=== PATIENT | female | born 1985 | race Caucasian/White ===

== ENCOUNTER 2017-05-02 12:36 | Emergency (ER) | payer OTHER ==
[~2017-05-02 12:36] MED LIST: IRON1 TAB; MACROBID100 M1; NO MEDICATIONS; PRENATAL1 TA1
[2017-05-02 13:24] LABS: URINE SOURCE CLEAN CATCH
[2017-05-02 13:28] LABS: URINE APPEARANCE CLEAR; URINE BILIRUBIN NEG (NEG); URINE BLOOD NEG (NEG); URINE COLOR YELLOW; URINE GLUCOSE NEG (NEG); URINE KETONE NEG (NEG); URINE LEUKOCYTE ESTERASE NEG (NEG); URINE NITRATE NEG (NEG); URINE PH 5.5 (5-8); URINE PROTEIN TRACE (NEG); URINE SPECIFIC GRAVITY 1.036 (1.003-1.035); URINE UROBILINOGEN 0.2 MG/DL (NEG)
[2017-05-02 13:28] LABS: BASOPHIL% 1.2 % (0-2.5); EOSINOPHIL# 0.2 X10e3 (0-0.7); EOSINOPHIL% 6.7 % (0.0-7.0); HEMATOCRIT 38.1 % (35.0-45.0); HEMOGLOBIN 12.6 gm/dL (12.0-16.0); LYMPHOCYTE# 1.2 X10e3 (1.0-3.5); LYMPHOCYTE% 34.8 % (17.0-45.0); MEAN CELL VOLUME 94.3 FL (83-96); MEAN CORPUSCULAR HEMOGLOBIN 31.1 PG (28-34); MEAN CORPUSCULAR HGB CONC 32.9 g/dL (30-36); MEAN PLATELET VOLUME 7.4 FL (6.5-11.5); MONOCYTE# 0.4 X10e3 (0-1.0); MONOCYTE% 11.1 % (3.0-12.0); NEUTROPHIL# 1.6 X10e3 (1.5-7.1); NEUTROPHIL% 46.2 % (40-75); PLATELET COUNT 245 X10e3 (140-420); RED BLOOD COUNT 4.04 X10e (3.90-5.30); RED CELL DISTRIBUTION WIDTH 13.2 % (11.0-15.5); WHITE BLOOD COUNT 3.5 X10e3 (4.0-10.5)
[2017-05-02 13:31] LABS: DIFF IND NO
[2017-05-02 13:33] LABS: CULTURE INDICATED? NO
[2017-05-02 13:55] LABS: ALBUMIN SERUM 3.7 g/dL (3.5-5.0); BILIRUBIN, DIRECT 0.1 mg/dL (0.0-0.2); BILIRUBIN,INDIRECT 0.6 mg/dL (0.0-0.9); BILIRUBIN,TOTAL 0.7 mg/dL (0.2-2.0); BUN/CREATININE RATIO 14.44; CALCIUM SERUM 8.4 mg/dL (8.4-10.2); CREATININE SERUM 0.9 mg/dL (0.6-1.4); GLOM FILT RATE Estimated 85.3 mL/min (>60); POTASSIUM 3.4 mmol/L (3.5-5.1)
== END 2017-05-02 14:42 | disposition home or self-care (01) ==
LOC: CED 12:36
PROVIDERS: Nurse Practitioner
DX: A08.4 Viral intestinal infection, unspecified (principal); F32.9 Major depressive disorder, single episode, unspecified
CPT/HCPCS: 36415; 80048; 80076; 81003; 82150; 83690; 84703; 85025; 99284

== ENCOUNTER 2017-05-18 20:52 | Inpatient (IN) | payer OTHER ==
[~2017-05-18] VITALS: Ht 175.3 cm; Wt 88.5 kg
--- NOTE | ~2017-05-18 | PN ---
Unit #: [id number] #: [id number] Patient: JOVAN RODRIGUEZ [id number] [facility] [address] [place] [address] [id number] I MR#: [id number] NAME: JOVAN RODRIGUEZ. ROOM: P121 Age: 32 Sex: F Admission Date: 05/18/2017 : 1985 Attending Physician: Mike Ernandez M.D. Admitting Physician: Mike Ernandez M.D. Primary Care Physician: Redd Hoyt PROGRESS NOTES DATE 05/20/2017 DISCUSSION The patient is abed resting comfortably. Staff reports no management issues. We have learned that the patient is not , and trazodone has been reinitiated. The patient continues to minimize her substance abuse issues. Dictated by... Mike Ernandez M.D. CB/yu TD: 05/20/2017 13:13 JOB #: [id number] GIO PROGRESS NOTES Page 1 of 1 X Mike Ernandez MD X PROGRESS NOTE
--- NOTE | ~2017-05-18 | PA ---
Unit #: [id number] #: [id number] Patient: JOVAN RODRIGUEZ [id number] [facility] [address] [place] [address] [id number] MR#: [id number] NAME: JOVAN RODRIGUEZ. ROOM: [facility] Age: 32 Sex: F Admission Date: 05/18/2017 : 1985 Date of Assessment: 05/19/2017 Attending Physician: Mike Ernandez M.D. Admitting Physician: Mike Ernandez M.D. Primary Care Physician: Ignacio Barreto M.D. PSYCHIATRIC ASSESSMENT IDENTIFYING INFORMATION The patient is a 31-year-old white female admitted voicing positive suicidal ideation. INFORMANT(S) Patient and chart. RELIABILITY Fair. CHIEF COMPLAINT None given. HISTORY OF PRESENT ILLNESS The patient is a 31-year-old white female with a history of cocaine and alcohol abuse as well as depression. She was last hospitalized at this facility in August 2016. The patient reports that she yesterday learned that CPS worker would seek permanent removal of her 3 children from her home and this caused her to become suicidal with plan to crash her automobile. The patient reports was previously prescribed Celexa and Geodon but is currently on no prescribed psychotropic medications. She had reported to staff on admission that she is and due to give in January 2018. For a more complete history of present illness, please refer to previous dictated notes. PAST PSYCHIATRIC HISTORY Reviewed, no changes. FAMILY HISTORY/SOCIAL HISTORY Reviewed, no changes. MEDICAL HISTORY Reviewed, no changes. MEDICATION HISTORY None on admission. ALLERGIES None. MENTAL STATUS EXAM At this time, reveals the patient to be an obese white female appearing her stated age. She is in no apparent physical distress at the time of Unit #: [id number] #: [id number] Patient: JOVAN RODRIGUEZ examination. She is awake, alert, oriented in all spheres. Her mood is mildly dysphoric. Her affect constricted. Speech is generally relevant and coherent. There are no gross deficits in memory or cognition noted. Intelligence is judged to be in the average range based on fund of knowledge. The patient is cooperative throughout the interview. She is currently endorsing positive suicidal ideation. She denies homicidal ideation. She denies any psychotic symptoms. Her judgement and insight appear to be reasonably intact. ASSETS AND LIABILITIES Patient's assets to be assessed. Liabilities, lack of resources. ADMITTING DIAGNOSES 1. Dysthymic disorder. 2. Cocaine use disorder. 3. Alcohol use disorder. 4. Obesity. 5. Rule out . PSYCHIATRIC PLAN/TREATMENT GOALS The patient remains hospitalized for safety and stabilization. Because she had stated that she is , we will hold all medications and seek a stat beta HCG. Considerations regarding treatment options will be undertaken once we are certain of the patient's status. Suicide precautions remain in place. ESTIMATED LENGTH OF STAY Five to seven days. Dictated by... Mike Ernandez M.D. MORENITA/dayan TD: 05/19/2017 15:25 JOB #: [id number] PSYCHIATRIC ASSESSMENT Page 1 of 1 X Mike Ernandez MD X PSYCHIATRIC ASSESSMENT
--- NOTE | ~2017-05-18 | DS ---
Unit #: [id number] #: [id number] Patient: JOVAN RODRIGUEZ [id number] [facility] [address] [place] [address] [id number] MR#: [id number] NAME: JOVAN RODRIGUEZ. ROOM: [facility] Age: 32 Sex: F Admission Date: 05/18/2017 : 1985 Discharge Date: 05/21/2017 Attending Physician: Mike Ernandez M.D. Primary Care Physician: Ignacio Barreto M.D. DISCHARGE SUMMARY REASON FOR ADMISSION The patient is a 31-year-old white female, admitted voicing positive suicidal ideation. HOSPITAL COURSE The patient was admitted to the [address] [place] [address] unit and placed on suicide precautions. She claimed to be at the time of admission, so home medications were held. It was however learned that the patient was not in fact . She did not however wish to begin taking any further medications apart from trazodone for sleep. On 05/21/2017, the patient was bright euthymic and denied suicidal ideation. She requested discharge and it was so ordered. FINAL DIAGNOSES Dysthymic disorder; cocaine use disorder by history; alcohol use disorder; obesity. DISPOSITION ON DISCHARGE The patient is discharged on the following medications: Trazodone 50 mg at bedtime p.r.n. insomnia. DISCHARGE INSTRUCTIONS No dietary or physical restrictions were placed upon the patient at the time of discharge. FOLLOWUP Followup will take place through the auspices of community mental health resources. PROGNOSIS The patient's prognosis is considered fair. Dictated by... Mike Ernandez M.D. CB/vinay TD: 05/21/2017 22:53 JOB #: [id number] Unit #: [id number] #: [id number] Patient: JOVAN RODRIGUEZ DISCHARGE SUMMARY Page 1 of 1 X Mike Ernandez MD X DISCHARGE SUMMARY
--- NOTE | ~2017-05-18 | HP ---
Unit #: [id number] #: [id number] Patient: JOVAN RODRIGUEZ [id number] [place] [address] [id number] I MR#: [id number] NAME: JOVAN RODRIGUEZ. ROOM: P121 Age: 32 Sex: F Admission Date: 05/18/2017 : 1985 Attending Physician: Mike Ernandez M.D. Admitting Physician: Mike Ernandez M.D. Primary Care Physician: Ignacio Barreto M.D. HISTORY AND PHYSICAL HISTORY OF PRESENT ILLNESS Jovan is a 32 year old admitted to [address] [place] [address] with depression and verbalizing wanting to hurt herself. PAST MEDICAL HISTORY Patient reports she is 2 months . PAST SURGICAL HISTORY Nothing reported. ALLERGIES No known drug allergies. SOCIAL HISTORY She does not smoke. Has a history of illicit drug use but denies anything currently. FAMILY HISTORY Medically noncontributory. REVIEW OF SYSTEMS CONSTITUTIONAL: No fever or chills. HEENT: Denies any sore throat, ear pain or runny nose. CARDIOVASCULAR: Denies chest pain, irregular heart rhythm or palpitations. CHEST: Denies shortness of breath or cough. No hemoptysis. GASTROINTESTINAL: Denies nausea, vomiting, diarrhea or chronic constipation. ENDOCRINE: Denies history of increased thirst or urination. No recent significant weight loss or gain. GENITOURINARY: Denies dysuria, frequency, or hematuria. SKIN: Denies any rashes. HEMATOLOGIC: Denies history of increased bleeding or bruising. MUSCULOSKELETAL: Denies any hot, swollen joints. No generalized muscle pain. NEUROLOGIC: Denies problems with vision or speech. No frequent, severe headaches. No numbness, tingling or weakness in any extremities. Denies loss of bladder or bowel control. CURRENT MEDICATIONS Preparation H topically p.r.n. PHYSICAL EXAMINATION GENERAL: Alert, well-nourished, in no apparent distress. Unit #: [id number] #: [id number] Patient: JOVAN RODRIGUEZ VITAL SIGNS: Blood pressure 110/50, heart rate 72, respirations 16, temperature 98.6. WEIGHT: 195. HEIGHT: 5 feet 9 inches. SKIN: Warm and dry without rash or lesion. HEENT: Normocephalic. TMs not viewed. Oral and nasal passages clear. Conjunctivae clear. PERRLA. EOMs intact. NECK: Supple without lymphadenopathy or thyromegaly. HEART: Regular rate and rhythm without murmur. LUNGS: Clear. ABDOMEN: Soft, nontender. : Not done. EXTREMITIES: No evidence of cyanosis, clubbing or edema. Moves all without focal deficit. NEUROLOGICAL: Grossly within normal limits. Cranial Nerves: II: Visual peña are intact. III, IV AND : Extraocular movements are intact. Pupils are equal, round and reactive to light. V: Facial sensation is grossly normal. VII: Facial movements and expression are normal. VIII: Auditory acuity grossly intact. IX, X: Uvula is midline. Phonation is normal. XI: Patient shrugs shoulders and turns head normally. XII: Tongue protrudes in the midline. Sensory and Motor Function: Sensory and motor sensation is grossly normal. Motor: moves all extremities well. Coordination: Gait is normal. Deep Tendon Reflexes: Intact. IMPRESSION 1. Psychiatric admission. 2. Patient reports she is 2 months . Beta HCG is negative. RECOMMENDATIONS PSYCHIATRIC: Per psychiatrist. MEDICAL: See no contraindication to participate in facility's activities. MEDICAL PROGNOSIS Good. MEDICAL CONDITION Stable. Dictated by... Lisa Gottlieb PSudhakarASudhakar-C. for Redd Abbott/dayan TD: 05/19/2017 23:02 JOB #: [id number] Unit #: [id number] #: [id number] Patient: JOVAN RODRIGUEZ HISTORY AND PHYSICAL Page 1 of 1 X Lisa Gottlieb HISTORY AND PHYSICAL
[2017-05-19 10:35] LABS: BASOPHIL# 0.1 X10e3 (0-0.3); BASOPHIL% 1.2 % (0-2.5); EOSINOPHIL# 0.2 X10e3 (0-0.7); EOSINOPHIL% 3.7 % (0.0-7.0); HEMATOCRIT 39.1 % (35.0-45.0); HEMOGLOBIN 12.9 gm/dL (12.0-16.0); LYMPHOCYTE# 2.8 X10e3 (1.0-3.5); LYMPHOCYTE% 41.8 % (17.0-45.0); MEAN CELL VOLUME 95.9 FL (83-96); MEAN CORPUSCULAR HEMOGLOBIN 31.6 PG (28-34); MEAN CORPUSCULAR HGB CONC 32.9 g/dL (30-36); MEAN PLATELET VOLUME 8.3 FL (6.5-11.5); MONOCYTE# 0.5 X10e3 (0-1.0); NEUTROPHIL# 3.1 X10e3 (1.5-7.1); NEUTROPHIL% 46.3 % (40-75); PLATELET COUNT 243 X10e3 (140-420); RED BLOOD COUNT 4.08 X10e (3.90-5.30); RED CELL DISTRIBUTION WIDTH 13.6 % (11.0-15.5); WHITE BLOOD COUNT 6.7 X10e3 (4.0-10.5)
[2017-05-19 10:40] LABS: DIFF IND NO
[2017-05-19 10:44] LABS: ALBUMIN SERUM 3.5 g/dL (3.5-5.0); BILIRUBIN,TOTAL 0.5 mg/dL (0.2-2.0); CALCIUM SERUM 9.1 mg/dL (8.4-10.2); POTASSIUM 4.2 mmol/L (3.5-5.1); PROTEIN TOTAL SERUM 6.7 g/dL (6.0-8.3)
[2017-05-19 10:51] LABS: THYROID STIMULATING HORMONE 2.13 uIU/ml (0.34-5.60)
[2017-05-19 10:58] LABS: FREE THYROXIN (T4) 0.86 ng/dL (0.58-1.64)
== END 2017-05-21 12:50 | disposition home or self-care (01) | DRG 881 ==
LOC: P1S 21:50
PROVIDERS: Specialist
DX: F34.1 Dysthymic disorder (principal); R45.851 Suicidal ideations; F12.10 Cannabis abuse, uncomplicated; F10.10 Alcohol abuse, uncomplicated; E66.9 Obesity, unspecified; Z68.28 Body mass index [BMI] 28.0-28.9, adult
CPT/HCPCS: 80053; 84439; 84443; 84703; 85025

== ENCOUNTER 2017-07-04 11:12 | Emergency (ER) | payer OTHER ==
[~2017-07-04] VITALS: Ht 175.3 cm; Wt 88.5 kg
== END 2017-07-04 13:55 | disposition home or self-care (01) ==
LOC: CFTX 11:12 → CED 11:12 → CFTX 12:35
DX: L03.115 Cellulitis of right lower limb (principal); J02.9 Acute pharyngitis, unspecified; Z87.442 Personal history of urinary calculi
CPT/HCPCS: 87651; 99283